=== PATIENT | male | born 1970 | race Two or more races ===

== ENCOUNTER 2019-08-16 05:37 | Day surgery (SDC) | payer BC ==
[2019-08-16] VITALS (9 sets, daily range): BP systolic 117–135; BP diastolic 76–88
[~2019-08-16] VITALS: Ht 177.8 cm; Wt 86.2 kg
[2019-08-16] MEDS ORDERED: fentaNYL 100 mcg/2 mL IV ONE (05:38)
[2019-08-16] MEDS ORDERED: Midazolam 2mg/2ml Inj ONE ×2 (05:38→07:00)
[2019-08-16] MEDS ORDERED: LR 1000ml 1,000 ML IVLG SCH ×2 (07:00→07:15)
[2019-08-16] MEDS ORDERED: LR 1000ml ONE (07:00)
[2019-08-16] MEDS ORDERED: fentaNYL 250mcg/5ml ONE (07:00)
[2019-08-16] MEDS ORDERED: Propofol 200mg/20ml IV ONE (07:00)
--- NOTE | 2019-08-16 07:11 | Short Stay Surgery H&P ---
History of Present Illness History of Present Illness Chief Complaint See attached note HPI Kassi Moe is a 49 year old male who was admitted on for Abnormal Ct Scan Patient History Allergies: Coded Allergies: No Known Allergies (Unverified , 08/13/19) Medication History No Active Prescriptions or Reported Meds Physical Exam Vital Signs Last Vital Signs Date Time Temp Pulse Resp B/P (MAP) Pulse Ox O2 Delivery O2 Flow Rate FiO2 08/16/19 06:17 Room Air 08/16/19 06:10 97.6 77 18 118/76 99 Plan Attestation Are the patient's medical conditions optimized for surgery? James Ko MD Aug 16, 2019 07:11
--- NOTE | 2019-08-16 07:12 | Pre-Procedure Note/Attestation ---
Pre-Procedure Note/Attestation Complete Prior to Procedure Planned Procedure: not applicable Procedure Narrative: colon Indications for Procedure Pre-Operative Diagnosis: screen diverticulosis Attestation I attest that I discussed the nature of the procedure; its benefits; risks and complications; and alternatives (and the risks and benefits of such alternatives ), prior to the procedure, with the patient (or the patient's legal dental detail representative). I attest that, if there was a reasonable possibility of needing a blood transfusion, the patient (or the patient's legal dental detail representative) was given the [facility] standardized written summary, pursuant to the Ashish Mehran Blood Safety Act ([place] Health and Safety Code # 1645, as amended). I attest that I re-evaluated the patient just prior to the surgery and that there has been no change in the patient's H&P, except as documented below: James Ko MD Aug 16, 2019 07:12
--- NOTE | 2019-08-16 07:14 | Anethesia Preoperative Eval ---
Anesthesia Pre-op PMH/ROS General Date of Evaluation: Aug 16, 2019 Time of Evaluation: 07:09 Anesthesiologist: Juanito ASA Score: ASA 2 Mallampati Score Class I : Soft palate, uvula, fauces, pillars visible Class II: Soft palate, uvula, fauces visible Class III: Soft palate, base of uvula visible Class IV: Only hard plate visible Mallampati Classification: Class II Surgeon: Costa Diagnosis: Abdominal pain Surgical Procedure: Colonoscopy Anesthesia History: none Family History: no anesthesia problems Allergies: Coded Allergies: No Known Allergies (Unverified , 08/13/19) Patient NPO?: Yes Past Medical History Cardiovascular: Denies: HTN, CAD, [place], valve dz, arrhythmia, other Pulmonary: Denies: asthma, COPD, BLAISE, other Gastrointestinal/Genitourinary: Reports: GERD; Denies: CRI, ESRD, other Neurologic/Psychiatric: Denies: dementia, CVA, depression/anxiety, TIA, other Endocrine: Denies: DM, hypothyroidism, steroids, other HEENT: Denies: cataract (L), cataract (R), glaucoma, [place] (L), [place] (R), other Hematology/Immune: Denies: anemia, DVT, bleeding disorder, other Musculoskeletal/Integumentary: Denies: OA, RA, DJD, DDD, edema, other PMH Narrative: as above PSxH Narrative: Hernia repair Anesthesia Pre-op Phys. Exam Physician Exam Last Vital Signs Date Time Temp Pulse Resp B/P (MAP) Pulse Ox O2 Delivery O2 Flow Rate FiO2 08/16/19 06:17 Room Air 08/16/19 06:10 97.6 77 18 118/76 99 Constitutional: NAD Neurologic: CN 2-12 intact Cardiovascular: RRR, no M/R/G Respiratory: CTA Gastrointestinal: S/NT/ND Airway Exam Mallampati Score: Class II MO: full Neck: flexible ROM: full Teeth: intact Dentures: no upper, no lower Anesthesia Pre-op A/P Risk Assessment & Plan Assessment: ASA 2 Plan: MAC Status Change Before Surgery: No Pre-Antibiotics Drug: None Lemuel Wilcox MD Aug 16, 2019 07:14
[2019-08-16] MEDS ORDERED: fentaNYL 100 mcg/2 mL IV PRN (07:15)
--- NOTE | 2019-08-16 07:49 | Immediate Post-Op Evaluation ---
Immediate Post-Op Evalulation Immediate Post-Op Evalulation Procedure: Colonoscopy Date of Evaluation: Aug 16, 2019 Time of Evaluation: 07:47 IV Fluids: 800 Blood Products: none Estimated Blood Loss: none Urinary Output: none Blood Pressure Systolic: 134 Blood Pressure Diastolic: 72 Pulse Rate: 68 Respiratory Rate: 20 O2 Sat by Pulse Oximetry: 98 Temperature (Fahrenheit): 97.6 Pain Score (1-10): 1 Nausea: No Vomiting: No Complications none Patient Status: awake, patent, none Hydration Status: adequate Lemuel Wilcox MD Aug 16, 2019 07:49
--- NOTE | 2019-08-16 09:29 | 48 Hour Post Anesthesia Eval ---
Post Anesthesia Evaluation Procedure: Colonoscopy Date of Evaluation: Aug 16, 2019 Time of Evaluation: 09:28 Blood Pressure Systolic: 128 0: 76 Pulse Rate: 68 Respiratory Rate: 20 Temperature (Fahrenheit): 97.6 O2 Sat by Pulse Oximetry: 98 Airway: patent Nausea: No Vomiting: No Pain Intensity: 1 Hydration Status: adequate Cardiopulmonary Status: stable Mental Status/LOC: patient returned to baseline Follow-up Care/Observations: n/a Post-Anesthesia Complications: none Follow-up care needed: ready to discharge Lemuel Wilcox MD Aug 16, 2019 09:29
--- NOTE | 2019-08-16 17:45 | Operative Note - Dictated ---
DATE OF OPERATION: 08/16/2019 GASTROENTEROLOGY PROCEDURE REPORT PROCEDURE: Colonoscopy with biopsy. SURGEON: James Ko M.D. ANESTHESIA: Please see the separate anesthesiologist notes for details. PRE-ENDOSCOPIC DIAGNOSES: 1. Screening. 2. History of diverticulitis in 2019. POST-ENDOSCOPIC DIAGNOSES: 1. No polyps or masses identified. 2. Diverticulosis along with colonic spasm in the sigmoid colon along with some erythema in the area, status post biopsy. PROCEDURE: The procedure and its risks were explained and an informed consent was obtained. A rectal exam was done and the colonoscope was advanced to the cecum , which was identified by the ileocecal valve. The colonoscope was then gradually withdrawn. Findings are as listed above. Patient was sent to recovery in stable condition. RECOMMENDATIONS: 1. Follow up biopsy results. 2. High-fiber diet. 3. Outpatient followup. James Ko M.D. DR: ALIA JOB#: [id number] CC: James Ko M.D.; Fax#: [phone] [facility]
--- NOTE | 2019-08-18 16:45 | Operative Note - Dictated ---
See separate procedure dictation. [facility]
--- NOTE | 2019-08-18 20:47 | Endoscopy Procedure Note ---
Endoscopy Procedure Note General Indication for Procedure: screen abnormal CT Procedures Performed: colonoscopy Operative Findings/Diagnosis: diverticulosis with sig erythema Specimen: yes Pt Tolerated Procedure Well: Yes Anesthesia Anesthesiologist: see report Anesthesia: moderate sedation Inserted Devices Implant(s) used?: No GI Core Measures 50 yrs or older w/o bx or poly: No 10yrs. F/U recommended: Yes If not recommended, why?: 18 years or older w/prev. colo: No <3yrs. since last colonoscopy: No Med reason:<3 yrs.: System Reason:<3 yrs.: Last colonoscopy >= to 3yrs: Yes James Ko MD Aug 18, 2019 20:47
--- NOTE | 2019-08-18 20:48 | Brief Operative Note ---
Immediate Post Operative Note Operative Note Chief Complaint: screen abnl CT Pre-op Diagnosis: screen diverticulosis Procedure: colon bx Post-op Diagnosis: diverticulosis sig erythema Surgeon: crispin Specimen: yes Complications: none Condition: stable Fluids: per record Implant(s) used?: No James Ko MD Aug 18, 2019 20:48
== END 2019-08-16 08:50 | disposition home or self-care (01) ==
LOC: GAS 05:37
DX: Z12.11 Encounter for screening for malignant neoplasm of colon (principal); K57.90 Diverticulosis of intestine, part unspecified, without perforation or abscess without bleeding; F17.200 Nicotine dependence, unspecified, uncomplicated; K21.9 Gastro-esophageal reflux disease without esophagitis
CPT/HCPCS: 45380; J2250; J2704; J3010; J7120; 94003; 94150